=== PATIENT | female | born 1980 | race African-American/Black ===

== ENCOUNTER 2018-04-30 08:45 | Emergency (ER) | payer BC, OTHER ==
[2018-04-30] MEDS: DIPHTH/TET/ACEL PERTUSS (ADULT) 0.5 ML VIAL IM* (10:21)
[2018-04-30] MEDS: ERYTHROMYCIN 1 GM OPH OINT RIGHT EYE ×2 (10:22)
[2018-04-30] MEDS: IBUPROFEN 800 MG TAB PO (11:01)
== END 2018-04-30 11:40 | disposition home or self-care (01) ==
LOC: E/R 08:45
DX: S05.11XA Contusion of eyeball and orbital tissues, right eye, initial encounter (principal); S09.8XXA Other specified injuries of head, initial encounter; Y04.0XXA Assault by unarmed brawl or fight, initial encounter; Y92.9 Unspecified place or not applicable; Z23 Encounter for immunization
CPT/HCPCS: 70450; 70486; 70490; 73130-LT; 90471; 90715; 99284-25